=== PATIENT | female | born 1970 | race African-American/Black ===

== ENCOUNTER 2018-03-23 09:34 | Inpatient (IN) | payer SELFPAY ==
[~2018-03-23] VITALS: Ht 160 cm; Wt 113.9 kg
[2018-03-23] MEDS ORDERED: SODIUM CHLORIDE 0.9% 1,000 ML IV ONE (10:17)
[2018-03-23] MEDS ORDERED: HYDROCODONE/ACETAMINOPHEN 5/325MG TABLET PO STA (10:17)
[2018-03-23 12:47] LABS: BASOPHILS % 1.1 % (0.0-2.0); HEMATOCRIT. 40.4 % (36.0-48.0); HEMOGLOBIN. 13.1 g/dL (12.0-16.0); LYMPHOCYTES % 19.9 % (20.0-50.0); MEAN CORPUSCULAR HEMOGLOBIN 25.9 pg (28.0-32.0); MEAN CORPUSCULAR VOLUME 79.3 fL (81.0-99.0); MEAN PLATELET VOLUME 9.3 fl (7.4-10.4); MONOCYTES % 9.3 % (2.0-8.0); NEUTROPHILS % 66.7 % (40.0-76.0); PLATELET 198 x1000/uL (130-400); RED BLOOD CELL COUNT 5.09 mill/uL (4.2-5.4); RED CELL DISTRIBUTION WIDTH 15.2 % (11.6-14.6)
[2018-03-23 12:51] LABS: CHLORIDE 100 mEq/L (98-107)
[2018-03-23 13:30] LABS: CLARITY URINE CLOUDY (CLEAR); COLOR URINE YELLOW (YELLOW); KETONES URINE NEGATIVE (NEGATIVE); LEUKOCYTE ESTERASE URINE NEGATIVE (NEGATIVE); NITRITE URINE NEGATIVE (NEGATIVE); OCCULT BLOOD URINE NEGATIVE (NEGATIVE); PH URINE 7.5 (4.5-8.0); PROTEIN URINE 1+ (NEGATIVE); UROBILINOGEN URINE 0.2 E.U./dL (0.2-1.0)
[2018-03-23 14:26] LABS: D-DIMER 1.11 mg/L FEU (<0.50)
[2018-03-23] MEDS ORDERED: POTASSIUM CHLORIDE 20MEQ TABLET SR PO ONE (14:45)
[2018-03-23 15:51] VITALS: BP 140/66
[2018-03-23 15:59] VITALS: BP 140/66
[2018-03-23] MEDS ORDERED: LORAZEPAM 2MG/ML CPJ IV PRN (16:30)
[2018-03-23] MEDS ORDERED: DIPHENHYDRAMINE 50MG/ML VIAL IV PRN (16:30)
[2018-03-23] MEDS: DEXT 5%/0.45% NACL 1000ML 1,000 ML IV SCH (17:38)
[2018-03-23] MEDS: HYDROMORPHONE HCL/PF 2MG/ML CPJ IV PRN ×2 (17:56→20:44)
[2018-03-23 20:00] VITALS: BP 146/87
[2018-03-23] MEDS: ENOXAPARIN 30MG/0.3ML SYR SUBCUT SCH (20:09)
[2018-03-23] MEDS: ONDANSETRON HCL 4MG/2ML INJ IV PRN (21:39)
[2018-03-23] MEDS ORDERED: HYDR25TA PO (21:42)
[2018-03-24] VITALS (8 sets, daily range): BP systolic 126–164; BP diastolic 64–97
[2018-03-24] MEDS: ONDANSETRON HCL 4MG/2ML INJ IV PRN (05:03)
[2018-03-24] MEDS: HYDROMORPHONE HCL/PF 2MG/ML CPJ IV PRN (05:28)
[2018-03-24] MEDS: ENOXAPARIN 30MG/0.3ML SYR SUBCUT SCH ×2 (08:28→21:32)
[2018-03-24] MEDS: ACETAMINOPHEN 325MG TABLET PO PRN ×2 (09:45→21:35)
[2018-03-24] MEDS ORDERED: AMLODIPINE 5MG TABLET PO SCH (11:15)
[2018-03-24] MEDS: HYDROCODONE/ACETAMINOPHEN 5/325MG TABLET PO PRN ×2 (14:14→22:46)
[2018-03-24 15:31] LABS: T4 FREE 0.93 ng/dL (0.76-1.46)
[2018-03-24 15:32] LABS: CREATINE KINASE MB FRACTION 1.4 ng/mL (0.5-3.6)
[2018-03-24] MEDS: DEXT 5%/0.45% NACL 1000ML 1,000 ML IV SCH (16:29)
[2018-03-24] MEDS ORDERED: CLONIDINE 0.1MG TABLET PO PRN (16:30)
[2018-03-24] MEDS: METFORMIN HCL 500MG TABLET PO SCH (17:40)
[2018-03-24 17:42] LABS: *AMPHETAMINES SCREEN URINE NEGATIVE (NEGATIVE); *BARBITURATES SCREEN URINE NEGATIVE (NEGATIVE)
[2018-03-24 17:43] LABS: *BENZODIAZEPINES SCREEN URINE NEGATIVE (NEGATIVE); *COCAINE SCREEN URINE NEGATIVE (NEGATIVE); METHADONE URINE SCREEN NEGATIVE (NEGATIVE); PHENCYCLIDINE URINE SCREEN NEGATIVE (NEGATIVE)
[2018-03-24 17:44] LABS: CANNABINOID URINE SCREEN NEGATIVE (NEGATIVE)
[2018-03-24 17:45] LABS: OPIATES URINE SCREEN PRESUMTIVE POSITIVE (NEGATIVE)
[2018-03-24] MEDS ORDERED: ATORVASTATIN CALCIUM 40MG TABLET PO SCH (21:00)
[2018-03-24] MEDS: AMLODIPINE 5MG TABLET PO SCH (21:32)
[2018-03-24] MEDS: METOPROLOL TARTRATE 50MG TABLET PO SCH (21:32)
[2018-03-25] VITALS: BP 129/60
[2018-03-25] MEDS: DEXT 5%/0.45% NACL 1000ML 1,000 ML IV SCH (01:13)
[2018-03-25 01:15] LABS: CREATINE KINASE MB FRACTION 1.2 ng/mL (0.5-3.6)
[2018-03-25 04:00] VITALS: BP_SYST 115; BP_SYST 130; BP_DIAS 50; BP_DIAS 64
[2018-03-25 08:00] VITALS: BP 116/67
[2018-03-25 08:55] LABS: BASOPHILS % 0.8 % (0.0-2.0); EOSINOPHILS % 5.5 % (0.0-5.0); HEMATOCRIT. 37.1 % (36.0-48.0); HEMOGLOBIN. 12.2 g/dL (12.0-16.0); LYMPHOCYTES % 29.2 % (20.0-50.0); MEAN CORPUSCULAR VOLUME 79.3 fL (81.0-99.0); MEAN PLATELET VOLUME 9.2 fl (7.4-10.4); MONOCYTES % 11.8 % (2.0-8.0); NEUTROPHILS % 52.7 % (40.0-76.0); PLATELET 184 x1000/uL (130-400); RED BLOOD CELL COUNT 4.67 mill/uL (4.2-5.4); RED CELL DISTRIBUTION WIDTH 15.2 % (11.6-14.6)
[2018-03-25] MEDS: METFORMIN HCL 500MG TABLET PO SCH (08:58)
[2018-03-25] MEDS: ENOXAPARIN 30MG/0.3ML SYR SUBCUT SCH (08:58)
[2018-03-25] MEDS: METOPROLOL TARTRATE 50MG TABLET PO SCH (08:58)
[2018-03-25] MEDS: AMLODIPINE 5MG TABLET PO SCH (08:58)
[2018-03-25 09:04] LABS: CHLORIDE 103 mEq/L (98-107)
[2018-03-25 09:10] LABS: PHOSPHORUS 2.6 mg/dL (2.5-4.9)
[2018-03-25 09:13] LABS: CREATINE KINASE 146 IU/L (26-192)
[2018-03-25 09:15] LABS: CREATINE KINASE MB FRACTION 1.3 ng/mL (0.5-3.6)
[2018-03-25] MEDS: HYDROCODONE/ACETAMINOPHEN 5/325MG TABLET PO PRN (10:22)
[2018-03-25 12:00] VITALS: BP 141/80
[2018-03-25 14:21] VITALS: BP 141/80
== END 2018-03-25 15:15 | disposition home or self-care (01) | DRG 48 ==
LOC: ER 09:34 → 6WST 13:37 → EDBEDREQ 13:52 → EDBEDREQTM 13:52 → ENRESERV 14:21 → 5WST 03-25 06:20
PROVIDERS: ADMIT Internal Medicine Nephrology; ATTEND Internal Medicine Nephrology
DX: G90.8 Other disorders of autonomic nervous system (principal); Z68.41 Body mass index [BMI] 40.0-44.9, adult; E66.9 Obesity, unspecified; E78.5 Hyperlipidemia, unspecified; E87.6 Hypokalemia; I10 Essential (primary) hypertension; J06.9 Acute upper respiratory infection, unspecified; M17.12 Unilateral primary osteoarthritis, left knee; W10.8XXA Fall (on) (from) other stairs and steps, initial encounter; Y93.89 Activity, other specified; Z88.0 Allergy status to penicillin; Y92.89 Other specified places as the place of occurrence of the external cause; Y99.8 Other external cause status
CPT/HCPCS: 36415; 70551; 71045; 73502; 73552; 73562; 73590; 73700; 78580; 80048; 80061; 80305; 82550; 82553; 83036; 83735; 83880; 84100; 84439; 84443; 84484; 85379; 93005; 93306; 93970; 93971; 96360; 97116; 97162; 99285; C1893; J1170; J1200; J1650; J2405; J3490; J7030